=== PATIENT | male | born 1955 | race Caucasian/White ===

== ENCOUNTER 2021-12-05 02:04 | Day surgery (SDC) | payer MEDICARE, SELFPAY ==
[2021-11-24 09:56] VITALS: BMI 26.4
--- NOTE | 2021-12-05 10:53 | P.HP_ITS ---
History of Present Illness History of Present Illness Consent: Risks, benefits, and alternatives have been discussed and questions answered. Patient agrees to proceed with procedure. Chief complaint: family hx of colon ca Narrative: Peter Juarez is a 66 year old male Referred for colon cancer screening. He has a family history of colon cancer. Both his half sister, and his maternal grandmother had colon cancer. Also he had a small polyp removed 5 years ago. Review of Systems Review of Systems: All systems reviewed & are unremarkable except as noted in HPI and below [facility] Past Medical History Medical History FHx: colon cancer Mixed hyperlipidemia Peripheral neuropathy Family History Family History Other Carcinoma of colon Family history of lung cancer Family history of malignant neoplasm of breast in first degree relative Social History Social History Smoking status: Never smoker Second hand tobacco smoke exposure: No Additional smoking assessment comments: smokes marijuana recreationally Alcohol intake: current Drinks per week: 1 Alcohol use details: social Substance use: current Substance use type: marijuana Other substance usage details: daily Living arrangements: with family Meds Home Medications and Allergies Home Medications Medication Instructions Recorded Confirmed Type multivitamin 1 tablet PO DAILY 10/05/20 11/24/21 History omega-3 fatty acids 1,000 mg 1,000 mg PO DAILY 10/05/20 11/24/21 History capsule aspirin 81 mg tablet,delayed 81 mg PO DAILY 04/26/21 11/24/21 History release pravastatin 40 mg tablet 40 mg PO DAILY #90 tablet 04/26/21 11/24/21 Rx triamcinolone acetonide 0.1 % 1 applic TOPICAL BID 04/26/21 11/24/21 History topical cream Allergies Allergy/AdvReac Type Severity Reaction Status Date / Time Penicillins Allergy Severe Rash Verified 12/05/21 11:12 Exam Resp: Auscultation: clear to auscultation bilaterally Cardio: Rate: regular rate Rhythm: regular rhythm GI: GI Palp: Yes Soft to palpation and No Tenderness to palpation present (GI) Assessment and Plan Assessment and plan (1) Colon cancer screening: Code(s): Z12.11 - Encounter for screening for malignant neoplasm of colon Status: Acute Assessment and Plan: Colonoscopy with possible biopsy or polypectomy or cautery or injection of substances.
[2021-12-05 11:13] VITALS: BP 125/72; PULSE 72; RESP 18; TEMP 36.8; O2SAT 100
[2021-12-05] MEDS: LACTATED RINGERS 1,000 ML 150 ML IV CONT (11:28)
--- NOTE | 2021-12-05 12:00 | P.PNAN_ITS ---
Anes - Initial Pre Proc Eval Procedure: Operation Date: 12/05/21 12:30 Proposed Procedures p Screening Colonoscopy - Tho Dunlap MD Date/Time: 12/05/21 12:00 Surgeon: Tho Dunlap MD Pre Op Diagnosis: family hx of colon ca Patient Data Age: 66 Gender: M Height: 1.83 m Weight: 88.2 kg Last Vital Signs Temp 98.2 F 12/05/21 11:13 Pulse 72 12/05/21 11:13 Resp 18 12/05/21 11:13 BP 125/72 12/05/21 11:13 Pulse Ox 100 12/05/21 11:13 Allergies Allergy/AdvReac Type Severity Reaction Status Date / Time Penicillins Allergy Severe Rash Verified 12/05/21 11:12 Home Medications Medication Instructions Recorded Confirmed Type multivitamin 1 tablet PO DAILY 10/05/20 11/24/21 History omega-3 fatty acids 1,000 mg 1,000 mg PO DAILY 10/05/20 11/24/21 History capsule aspirin 81 mg tablet,delayed 81 mg PO DAILY 04/26/21 11/24/21 History release pravastatin 40 mg tablet 40 mg PO DAILY #90 tablet 04/26/21 11/24/21 Rx triamcinolone acetonide 0.1 % 1 applic TOPICAL BID 04/26/21 11/24/21 History topical cream Patient hx anesthesia problems: none Family hx anesthesia problems: none Results Review: All pre-operative results and documents have been reviewed as part of the pre-operative evaluation. ON LICENSE OF [facility] Past Medical History Medical History (Updated 12/05/21 @ 10:53 by Tho Dunlap MD) FHx: colon cancer Mixed hyperlipidemia Peripheral neuropathy Family History Family History Other Carcinoma of colon Family history of lung cancer Family history of malignant neoplasm of breast in first degree relative Social History Social History Smoking status: Never smoker Second hand tobacco smoke exposure: No Additional smoking assessment comments: smokes marijuana recreationally Alcohol intake: current Drinks per week: 1 Alcohol use details: social Substance use: current Substance use type: marijuana Other substance usage details: daily Living arrangements: with family Anes - Eval Final PreProcedure Day of Procedure 12/05/21 12:00 Patient weight: normal Heart: regular rate and rhythm Lungs: clear to auscultation Airway: Mallampati scale class II Neurological: alert and oriented Last oral intake: >/= 8 hours ASA classification: III Emergent: no Anesthetic plan: proceed Anesthesia type and monitoring: general GIVS and standard monitoring Results Review: All pre-operative results and documents have been reviewed as part of the pre-operative evaluation. Informed Consent: The patient's anesthetic plan and its attendant risks and benefits were discussed with the patient/family/POA. Questions were solicited and answers provided to the satisfaction of the patient/family/POA.
[2021-12-05 12:53] VITALS: BP 119/74; PULSE 66; RESP 16; O2SAT 96
[2021-12-05 13:03] VITALS: BP 113/71; PULSE 64; RESP 16; O2SAT 96
[2021-12-05 13:13] VITALS: BP 133/85; PULSE 68; RESP 20; O2SAT 100
== END 2021-12-05 13:28 | disposition home or self-care (01) ==
PROVIDERS: PCP Internal Medicine; Visit Provider Internal Medicine Gastroenterology
PROC: 0DJD8ZZ Inspection of Lower Intestinal Tract, Via Natural or Artificial Opening Endoscopic (ICD-10-PCS; CPT 45378; principal; 2021-12-05 12:30)
DX: Z12.11 Encounter for screening for malignant neoplasm of colon (principal); Z86.010 Personal history of colon polyps; Z80.0 Family history of malignant neoplasm of digestive organs; K64.8 Other hemorrhoids; E78.2 Mixed hyperlipidemia; G62.9 Polyneuropathy, unspecified
CPT/HCPCS: G0105; J2704; J7120

== ENCOUNTER → 2022-08-10 08:02 | Outpatient (CLI) | payer MEDICARE, SELFPAY ==
--- NOTE | ~2022-08-10 | XR_ITS ---
EXAMINATION: XR knee RT 3V DATE: 08/10/2022 08:27 INDICATION: Right knee pain. TECHNIQUE: 3 views of right knee including standing views were obtained. COMPARISON: None. FINDINGS: Bone alignment is normal. No fracture. There is mild osteoarthritis of patellofemoral benji rtment. No knee joint effusion. IMPRESSION: 1. Mild right knee osteoarthritis. Reviewed, dictated and finalized at location A. [employer]
== END ==
PROVIDERS: PCP Internal Medicine; Visit Provider Nurse Practitioner
DX: M17.11 Unilateral primary osteoarthritis, right knee (principal)
CPT/HCPCS: 73562